=== PATIENT | female | born 1980 | race Caucasian/White ===

== ENCOUNTER 2019-03-26 09:47 | Emergency (ER) | payer MEDICARE, OTHER ==
[~2019-03-26] VITALS: Ht 177.8 cm; Wt 99.8 kg
[2019-03-26 10:28] VITALS: BP 145/99
== END 2019-03-26 12:04 | disposition home or self-care (01) ==
LOC: ER 09:54
DX: R22.31 Localized swelling, mass and lump, right upper limb (principal)
CPT/HCPCS: 73110